=== PATIENT | female | born 1985 | race Caucasian/White ===

== ENCOUNTER 2022-12-28 08:14 | Observation (INO) | payer BC ==
[2022-12-26 15:28] LABS: BASOPHILS # (AUTO) 0.1 (0.0-0.1); BASOPHILS % 0.8 % (0.0-1.0); EOSINOPHILS # (AUTO) 0.1 (0.0-0.4); EOSINOPHILS % 1.4 % (0.0-6.0); HEMATOCRIT 39.8 % (34.2-44.1); LYMPHOCYTES # (AUTO) 2.4 (1.0-3.2); LYMPHOCYTES % 30.2 % (18.0-39.1); MEAN CORPUSCULAR HEMOGLOBIN 23.7 pg (28-32); MEAN CORPUSCULAR HGB CONC 30.2 g/dL (31-35); MEAN CORPUSCULAR VOLUME 78.5 fL (81-99); MONOCYTES # (AUTO) 0.5 (0.2-0.8); MONOCYTES % 6.3 % (4.4-11.3); NEUTROPHILS # (AUTO) 4.9 (2.1-6.9); NEUTROPHILS % 60.9 % (38.7-80.0); PLATELET COUNT 261 x10e3/uL (140-360); RED BLOOD COUNT 5.07 x10e6/uL (3.6-5.1); RED CELL DISTRIBUTION WIDTH 18.4 % (11.7-14.4)
[2022-12-26 15:39] LABS: INR 1.02; PARTIAL THROMBOPLASTIN TIME 28.7 seconds (23.8-35.5)
[2022-12-26 15:43] LABS: CARBON DIOXIDE 26 mmol/L (22-29); CREATININE, SERUM 0.79 mg/dL (0.57-1.11); POTASSIUM 3.7 mmol/L (3.5-5.1)
[2022-12-26 15:55] LABS: ANION GAP 16.7 mmol/L (8-16); BLOOD UREA NITROGEN < 5 mg/dL (7-26); CALCIUM 9.6 mg/dL (8.4-10.2); CHLORIDE 96 mmol/L (98-107); GLUCOSE 263 mg/dL (74-118); SODIUM 135 mmol/L (136-145)
[2022-12-26 15:59] LABS: BUN/CREATININE RATIO 6 (6-25)
[~2022-12-28] VITALS: Ht 149.9 cm; Wt 44.0 kg
[~2022-12-28 08:14] MED LIST: ACETAMINOPHEN 1000 MG/100 ML 100 ML IV ONE; FOLIC ACID0.4 MG PO; SUGAMMADEX SODIUM 200 MG/2 ML VIAL IV ONE; THROMBIN FOR SOLN 5,000 UNIT VIAL ONE; Vancomycin IV 1 GM VIAL ONE
[2022-12-28] MEDS ORDERED: LACTATED RINGER'S 1,000 ML ONE (08:15)
[2022-12-28] MEDS ORDERED: HYDROMORPHONE 1MG/1ML INJ ONE (10:35)
[2022-12-28] MEDS ORDERED: HYDROCODON-ACE1 EA12 PO (11:39)
[2022-12-28] MEDS: HYDROMORPHONE 2MG/ML 2 MG/ML ML ONE ×3 (11:43→12:10)
[2022-12-28] MEDS ORDERED: PROMETHAZINE HCL (IM) 25 MG/ML VIAL IM PRN (11:45)
[2022-12-28] MEDS ORDERED: ONDANSETRON HCL INJ 2MG/ML 2ML 2 MG/ML VIAL IV PRN (11:45)
[2022-12-28] MEDS ORDERED: CEPACOL SORE THROAT LOZENGES PO PRN (11:45)
[2022-12-28] MEDS ORDERED: MAGNESIUM/ALUMINUM/SIMETHICONE 30 ML UDC PO PRN (11:45)
[2022-12-28] MEDS: LACTATED RINGER'S 1,000 ML IV SCH ×2 (11:45→19:54)
[2022-12-28] MEDS ORDERED: ACETAMINOPHEN 325 MG TAB PO PRN (11:45)
[2022-12-28] MEDS ORDERED: ZOLPIDEM TARTRATE 5 MG TAB PO PRN (11:45)
[2022-12-28] MEDS ORDERED: OXYCODONE/ACETAMINOPHEN 5-325 1 EACH TABLET ONE (12:27)
[2022-12-28] MEDS ORDERED: CARISOPRODOL 350 MG TAB ONE (12:28)
[2022-12-28] MEDS: OXYCODONE/ACETAMINOPHEN 5-325 1 EACH TABLET PO PRN ×2 (12:30→16:50)
[2022-12-28] MEDS: CARISOPRODOL 350 MG TAB PO PRN ×2 (12:30→16:51)
[2022-12-28] MEDS ORDERED: FENTANYL CITRATE/PF 100MCG/2 ML INJ ONE (12:53)
[2022-12-28] MEDS ORDERED: NICOTINE 21 MG/EA PATCH TOP PRN (13:00)
[2022-12-28] MEDS ORDERED: POVIDONE IODINE 0.05% 0.05 % ML PO ONE (13:06)
[2022-12-28] MEDS ORDERED: PROPOFOL IV EMULSION 10 MG/ML 20 ML VIAL ONE (13:06)
[2022-12-28] MEDS ORDERED: LIDOCAINE HCL 2% LOCAL INJ 5 ML SDV VIAL INJ ONE (13:06)
[2022-12-28] MEDS ORDERED: ROCURONIUM BROMIDE 10 MG/ML 5ML VIAL IV ONE (13:06)
[2022-12-28] MEDS ORDERED: SEVOFLURANE INHAL SOLN 250 ML PEN BTL ONE (13:06)
[2022-12-28] MEDS ORDERED: ONDANSETRON HCL INJ 2MG/ML 2ML 2 MG/ML VIAL ONE (13:06)
[2022-12-28] MEDS ORDERED: DEXAMETHASONE SOD PHOS INJ 4 MG/ML SDV ONE (13:06)
[2022-12-28 13:30] VITALS: BP 109/89; PULSE 112; RESP 17; TEMP 97.7; O2SAT 100
[2022-12-28 17:21] VITALS: BP 110/87; PULSE 90; RESP 16; TEMP 98; O2SAT 100
[2022-12-28 20:00] VITALS: BP 117/94; PULSE 75; RESP 18; TEMP 97.6; O2SAT 96
[2022-12-28] MEDS: HYDROMORPHONE 1MG/1ML INJ IV PRN (20:40)
[2022-12-29] VITALS: BP 130/93; PULSE 95; RESP 18; TEMP 97.9; O2SAT 100
[2022-12-29] MEDS: HYDROMORPHONE 1MG/1ML INJ IV PRN ×2 (00:53→06:19)
[2022-12-29 02:14] VITALS: BP 130/93; PULSE 95; RESP 18; TEMP 97.9; O2SAT 100
[2022-12-29] MEDS: OXYCODONE/ACETAMINOPHEN 5-325 1 EACH TABLET PO PRN ×2 (02:45→09:04)
[2022-12-29] MEDS: LACTATED RINGER'S 1,000 ML IV SCH (02:45)
[2022-12-29 04:00] VITALS: BP 112/84; PULSE 68; RESP 18; TEMP 97.8; O2SAT 98
[2022-12-29 08:30] VITALS: BP 112/90; PULSE 108; RESP 16; TEMP 97.9; O2SAT 100
[2022-12-29 08:39] VITALS: BP 112/90; PULSE 108; RESP 16; TEMP 97.7; O2SAT 100
== END 2022-12-29 10:56 | disposition home or self-care (01) ==
LOC: OR 08:14 → PACU V 13:03 → MED/SURG 13:08
PROVIDERS: ADMIT Neurological Surgery; ATTEND Neurological Surgery
DX: M50.022 Cervical disc disorder at C5-C6 level with myelopathy (principal); I10 Essential (primary) hypertension; F41.9 Anxiety disorder, unspecified; F17.210 Nicotine dependence, cigarettes, uncomplicated; K21.9 Gastro-esophageal reflux disease without esophagitis; R00.0 Tachycardia, unspecified; Z01.810 Encounter for preprocedural cardiovascular examination; Z01.812 Encounter for preprocedural laboratory examination; Z01.818 Encounter for other preprocedural examination; Z79.899 Other long term (current) drug therapy
CPT/HCPCS: 20931; 22551; 22845; 36415; 71046; 80048; 81025; 85025; 85610; 85730; 86850; 86900; 88304; 88311; 93005; G0378 ×2; J0131; J0690 ×2; J1100; J1170 ×3; J2001; J2405; J2704; J3010; J3370; J7121 ×2; 76000; C1713